=== PATIENT | male | born 1950 | race Caucasian/White ===

== ENCOUNTER 2016-10-11 21:31 | Observation (INO) | payer OTHER ==
[~2016-10-11] VITALS: Ht 172.7 cm; Wt 93.3 kg
[~2016-10-11 21:31] MED LIST: ADVIL,NUPRIN,M200 MG PO; ASPIRIN81 M2 PO; CARVEDILOL3.125 MG PO; MOTRIN800 MG PO; NORCO 7.5/321 TABLET PO; PANTOPRAZOLE SO40 MG PO; PLAVIX75 MG PO; VALIUM5 MG PO
[2016-10-11 22:44] LABS: BASOPHIL COUNT 0.1 K/uL (0-0.1); EOSINOPHIL (%) 3.7 % (0-5); EOSINOPHIL COUNT 0.2 K/uL (0-0.3); HEMATOCRIT 40.3 % (38.0-50.0); IMMATURE GRANULOCYTE (%) 0.2 % (0.0-0.7); INSTRUMENT ABS NEUTROPHIL CT 2.7 K/uL; MCH 31.8 PG (29.0-34.0); MEAN PLAT.VOLUME 10.1 uM^3 (9.0-12.4); MONOCYTE (%) 8.2 % (3-12); MONOCYTE COUNT 0.4 K/uL (0-0.8); NEUTROPHIL COUNT 2.7 K/uL (1.8-6.4); PLATELET COUNT 178 K/uL (156-360); RBC DIS.WIDTH-CV 12.1 % (11.8-14.6); RBC DIS.WIDTH-SD 40.5 % (39-53); RED BLOOD COUNT 4.43 M/uL (4.00-5.50); WHITE BLOOD COUNT 5.4 K/uL (4.1-10.2)
[2016-10-11 22:52] LABS: CHLORIDE 106 mEq/L (99-109); POTASSIUM 4.1 mEq/L (3.7-5.4); SODIUM 140 mEq/L (136-147)
[2016-10-11 22:55] LABS: GLUCOSE 105 mg/dL (70-99)
[2016-10-11 22:56] LABS: ANION GAP 9 MEQ/L (2-14); TOTAL BILIRUBIN 0.4 mg/dL (0.0-1.0)
[2016-10-11 22:58] LABS: ALKALINE PHOSPHATASE 78 IU/L (3-129); D-DIMER ELISA 0.22 mg/L FEU (< 0.57); GFR ESTIMATE (CALCULATED) > 59 mL/min/
[2016-10-11 22:59] LABS: UREA NITROGEN (BUN) 15 mg/dL (9-23)
[2016-10-11 23:05] LABS: TROP-I INTERPRETATION NEGATIVE; TROPONIN-I < 0.01 ng/mL (0.0-0.30)
[2016-10-12 03:43] VITALS: BP 127/86
[2016-10-12 03:58] LABS: CREATINE KINASE 57 IU/L (1-294); TOTAL CK 57 IU/L (1-294)
[2016-10-12 04:05] LABS: TROP-I INTERPRETATION NEGATIVE; TROPONIN-I < 0.01 ng/mL (0.0-0.30)
[2016-10-12 04:18] LABS: CK-MB 1.3 ng/mL (0.0-4.9)
[2016-10-12 08:04] VITALS: BP 137/86; BP 37/86
[2016-10-12 10:07] LABS: TROP-I INTERPRETATION NEGATIVE; TROPONIN-I < 0.01 ng/mL (0.0-0.30)
[2016-10-12 10:17] LABS: CHLORIDE 106 mEq/L (99-109)
[2016-10-12 10:18] LABS: SODIUM 138 mEq/L (136-147)
[2016-10-12 10:19] LABS: POTASSIUM 5.6 mEq/L (3.7-5.4)
[2016-10-12 10:20] LABS: GLUCOSE 112 mg/dL (70-99)
[2016-10-12 10:21] LABS: ANION GAP 11 MEQ/L (2-14)
[2016-10-12 10:23] LABS: ALKALINE PHOSPHATASE 80 IU/L (3-129); GFR ESTIMATE (CALCULATED) > 59 mL/min/; TOTAL BILIRUBIN 0.8 mg/dL (0.0-1.0)
[2016-10-12 10:24] LABS: UREA NITROGEN (BUN) 11 mg/dL (9-23)
[2016-10-12] MEDS ORDERED: PLAVIX75 MG PO (12:19)
[2016-10-12] MEDS ORDERED: ATORVASTATIN CA40 MG PO (12:25)
[2016-10-12] MEDS ORDERED: TOPROL XL25 MG PO (12:25)
[2016-10-12] MEDS ORDERED: LO-DOSE ASPIRIN81 M2 PO (12:26)
[2016-10-12 12:38] VITALS: BP 146/77
== END 2016-10-12 13:15 | disposition home or self-care (01) ==
LOC: EME 21:31 → EDOF 10-12 02:37 → 5WEST 10-12 03:27
PROVIDERS: Emergency Medicine; Hospitalist; Internal Medicine Nephrology
DX: R07.89 Other chest pain (principal); M79.604 Pain in right leg; I10 Essential (primary) hypertension; I25.10 Atherosclerotic heart disease of native coronary artery without angina pectoris; I25.2 Old myocardial infarction; Z95.1 Presence of aortocoronary bypass graft; F17.200 Nicotine dependence, unspecified, uncomplicated; Z86.718 Personal history of other venous thrombosis and embolism; Z86.711 Personal history of pulmonary embolism; E78.5 Hyperlipidemia, unspecified; R74.0 Nonspecific elevation of levels of transaminase and lactic acid dehydrogenase [LDH]; I45.10 Unspecified right bundle-branch block; I51.7 Cardiomegaly
CPT/HCPCS: 71020; 80053; 82550; 82553; 84484; 85025; 85379; 93005; 93971; 99281; 99285; G0378; J7030

== ENCOUNTER 2018-01-15 01:03 | Emergency (ER) | payer OTHER ==
[~2018-01-15] VITALS: Ht 172.7 cm; Wt 88.1 kg
[~2018-01-15 01:03] MED LIST changes: +ATORVASTATIN CA40 MG PO; +LO-DOSE ASPIRIN81 M2 PO; +TOPROL XL25 MG PO
[2018-01-15 02:29] LABS: HEMATOCRIT 37.8 % (38.0-50.0); HEMOGLOBIN 13.3 G/DL (12.5-16.6); MCH 32.5 PG (29.0-34.0); MCHC 35.2 G/DL (30.0-36.0); MCV 92.4 FL (86-99); PLATELET COUNT 211 K/uL (156-360); RBC DIS.WIDTH-CV 12.7 % (11.8-14.6); RBC DIS.WIDTH-SD 43.1 % (39-53); RED BLOOD COUNT 4.09 M/uL (4.00-5.50); WHITE BLOOD COUNT 6.8 K/uL (4.1-10.2)
[2018-01-15 02:46] LABS: INTER. NORMALIZED RATIO 1.1
[2018-01-15 02:50] LABS: TROP-I INTERPRETATION NEGATIVE; TROPONIN-I < 0.01 ng/mL (0.0-0.30)
[2018-01-15 04:36] LABS: TROP-I INTERPRETATION NEGATIVE; TROPONIN-I < 0.01 ng/mL (0.0-0.30)
[2018-01-15 04:53] LABS: CHLORIDE 106 mEq/L (99-109); POTASSIUM 4.2 mEq/L (3.7-5.4); SODIUM 141 mEq/L (136-147)
[2018-01-15 04:55] LABS: GLUCOSE 105 mg/dL (70-99)
[2018-01-15 04:58] LABS: CREATININE 0.8 mg/dL (0.6-1.3); GFR ESTIMATE (CALCULATED) > 59 mL/min/ (58.99-99999)
[2018-01-15 04:59] LABS: UREA NITROGEN (BUN) 14 mg/dL (9-23)
[2018-01-15 05:15] VITALS: BP 162/78
== END 2018-01-15 05:19 | disposition home or self-care (01) ==
LOC: EME 01:03
PROVIDERS: Emergency Medicine
DX: R07.9 Chest pain, unspecified (principal); I10 Essential (primary) hypertension; I25.2 Old myocardial infarction; I25.10 Atherosclerotic heart disease of native coronary artery without angina pectoris; Z95.1 Presence of aortocoronary bypass graft; Z87.891 Personal history of nicotine dependence
CPT/HCPCS: 71045; 80048; 84484; 85027; 85379; 85610; 85730; 93005; 99281; 99285; J7030